=== PATIENT | female | born 1980 ===

== ENCOUNTER 2017-10-24 01:30 | Emergency (ER) | payer SELFPAY ==
[2017-10-24 01:37] VITALS: TEMP 98.5; O2SAT 99
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
[2017-10-24 03:13] VITALS: BP 130/80; PULSE 80; RESP 14
== END 2017-10-24 03:13 | disposition home or self-care (01) ==
LOC: C.ER 01:30
DX: S09.90XA Unspecified injury of head, initial encounter (principal); S40.811A Abrasion of right upper arm, initial encounter; Y04.0XXA Assault by unarmed brawl or fight, initial encounter

== ENCOUNTER 2017-11-17 09:01 | Emergency (ER) | payer SELFPAY ==
[2017-11-17 09:13] VITALS: BP 117/83; PULSE 72; RESP 18; TEMP 98.6; O2SAT 100; BMI 25.0
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
== END 2017-11-17 09:50 | disposition home or self-care (01) ==
LOC: C.ER 09:01
DX: R22.2 Localized swelling, mass and lump, trunk (principal)